=== PATIENT | female | born 1995 | race Caucasian/White ===

== ENCOUNTER 2018-04-25 23:33 | Emergency (ER) | payer OTHER, BC ==
[~2018-04-25] VITALS: Ht 149.9 cm; Wt 97.6 kg
[2018-04-26 00:02] LABS: ABSOLUTE BASOPHILS 0.1 thou/uL (0.0-0.2); ABSOLUTE EOSINOPHILS 0.2 thou/uL (0.0-0.7); ABSOLUTE LYMPHOCYTES 3.3 thou/uL (0.8-5.3); ABSOLUTE MONOCYTES 0.8 thou/uL (0.0-1.2); ABSOLUTE NEUTROPHILS 9.4 thou/uL (1.6-8.1); BASOPHILS 0.8 %; EOSINOPHILS 1.5 %; HEMATOCRIT 42.2 % (37.0-47.0); HEMOGLOBIN 13.7 gm/dL (12.0-15.0); LYMPHOCYTES 23.7 %; MCH 27.6 pg (26.0-34.0); MCHC 32.5 g/dL (28.0-37.0); MCV 84.7 fL (80.0-100.0); MONOCYTES 5.6 %; MPV 8.9 fl. (7.2-11.1); NUCLEATED RBCS 0 /100WBC; PLATELET COUNT* 273 thou/uL (150-400); POLYS 68.4 %; RBC 4.99 mil/uL (4.20-5.00); RDW-CV 13.4 % (10.5-14.5); WBC 13.7 thou/uL (4.0-11.0)
[2018-04-26 00:07] LABS: CALCIUM 9.4 mg/dL (8.5-10.1); CREATININE 0.8 mg/dL (0.6-1.3)
[2018-04-26 00:11] LABS: ALBUMIN 3.9 g/dL (3.4-5.0); TOTAL BILIRUBIN 0.2 mg/dL (<0.1-1.0); TOTAL PROTEIN 7.9 g/dL (6.4-8.2)
[2018-04-26] MEDS ORDERED: PHENERGAN 25 MG25 M1 PO (01:00)
[2018-04-26 01:29] VITALS: BP 103/49
== END 2018-04-26 01:29 | disposition home or self-care (01) ==
LOC: M.ERS 23:33
PROVIDERS: Nurse Practitioner Family
DX: G43.909 Migraine, unspecified, not intractable, without status migrainosus (principal); R11.2 Nausea with vomiting, unspecified

== ENCOUNTER 2018-05-02 21:22 | Emergency (ER) | payer OTHER, BC ==
[~2018-05-02] VITALS: Ht 149.9 cm; Wt 98.0 kg
[~2018-05-02 21:22] MED LIST: PHENERGAN 25 MG25 M1 PO
[2018-05-02 22:44] LABS: CALCIUM 9.3 mg/dL (8.5-10.1); CREATININE 0.7 mg/dL (0.6-1.3); POTASSIUM 3.7 mmol/L (3.5-5.1)
[2018-05-02 22:46] LABS: ABSOLUTE BASOPHILS 0.2 thou/uL (0.0-0.2); ABSOLUTE EOSINOPHILS 0.3 thou/uL (0.0-0.7); ABSOLUTE LYMPHOCYTES 3.3 thou/uL (0.8-5.3); ABSOLUTE MONOCYTES 0.8 thou/uL (0.0-1.2); ABSOLUTE NEUTROPHILS 7.1 thou/uL (1.6-8.1); BASOPHILS 1.3 %; EOSINOPHILS 2.6 %; HEMATOCRIT 41.3 % (37.0-47.0); HEMOGLOBIN 13.4 gm/dL (12.0-15.0); LYMPHOCYTES 28.3 %; MCH 27.4 pg (26.0-34.0); MCHC 32.4 g/dL (28.0-37.0); MCV 84.7 fL (80.0-100.0); MONOCYTES 6.8 %; MPV 9.2 fl. (7.2-11.1); NUCLEATED RBCS 0 /100WBC; PLATELET COUNT* 272 thou/uL (150-400); RBC 4.88 mil/uL (4.20-5.00); RDW-CV 13.6 % (10.5-14.5); WBC 11.7 thou/uL (4.0-11.0)
[2018-05-02 22:58] LABS: URINE BILIRUBIN NEGATIVE (Negative); URINE BLOOD NEGATIVE (Negative); URINE CLARITY CLEAR; URINE COLOR YELLOW; URINE GLUCOSE-RANDOM NEGATIVE (Negative); URINE KETONES NEGATIVE (Negative); URINE LEUKOCYTES-REFLEX NEGATIVE (Negative); URINE NITRITE-REFLEX NEGATIVE (Negative); URINE PROTEIN NEGATIVE (Negative); URINE SPECIFIC GRAVITY 1.015 (1.005-1.030); URINE UROBILINOGEN 0.2 E.U./dl (0.2-1.0)
[2018-05-02] MEDS ORDERED: ZOFRAN ODT4 MG PO (23:55)
[2018-05-02] MEDS ORDERED: BUTALB-APAP-CA1 EACH PO (23:55)
[2018-05-03 00:22] VITALS: BP 126/86
== END 2018-05-03 00:22 | disposition home or self-care (01) ==
LOC: M.ERS 21:22
PROVIDERS: Personal Emergency Response Attendant
DX: G43.909 Migraine, unspecified, not intractable, without status migrainosus (principal); Z98.890 Other specified postprocedural states

== ENCOUNTER 2018-07-13 19:20 | Emergency (ER) | payer OTHER, BC ==
[~2018-07-13] VITALS: Ht 149.9 cm; Wt 90.7 kg
[~2018-07-13 19:20] MED LIST changes: +BUTALB-APAP-CA1 EACH PO; +ZOFRAN ODT4 MG PO
[2018-07-13 21:20] VITALS: BP 165/68
== END 2018-07-13 21:22 | disposition home or self-care (01) ==
LOC: M.ERS 19:20
DX: G43.909 Migraine, unspecified, not intractable, without status migrainosus (principal); Z98.890 Other specified postprocedural states